=== PATIENT | male | born 1960 | race Caucasian/White ===

== ENCOUNTER → 2017-01-04 | Outpatient (CLI) | payer BC ==
[~2017-01-04] MED LIST: ABILIFY10 MG PO; CLARITIN10 MG PO; INVOKANA100 MG PO; METFORMIN HCL500 MG PO; MOBIC15 MG PO; PIOGLITAZONE15 MG PO; WELLBUTRIN XL300 MG PO; XANAX 0.5 MG0.5 MG PO
--- NOTE | ~2017-01-04 | SLE ---
[facility] [place] [address] POLYSOMNOGRAPHY STUDY Name: JACOBY SIMON [id number] Admission: 01/04/17 Attend Phys: Noah Barrios MD Discharge: Date of : 58 Report #: [id number] THIS REPORT FOR: //name// CC: Noah Barrios MD SUBJECTIVE: A 56-year-old, height 5 feet 6-1/2, weight 230 pounds. COMMENTS: History of obstructive sleep apnea. A baseline portion was done with an apnea-hypopnea index of 26 events per sleep hour, higher in REM sleep. CPAP TITRATION: Titrated at 9, 10, 12, 13 and 14 cm water pressure. At 13 cm water pressure, the patient was seen for 97 minutes of which 48 minutes was in REM sleep. There were 4 hypopneas, apnea-hypopnea index of 2.5 events per sleep hour, low sat of 92%. IMPRESSION: 1. History of obstructive sleep apnea, G47.33. 2. No significant arrhythmia noted. 3. Periodic limb movement with arousal index throughout the night was 15 events per sleep hour. These did decrease later in the evening. 4. CPAP improves the patient's apnea-hypopnea index, snoring and desaturation. The patient was seen in supine REM sleep at 13 cm. SUGGESTIONS: 1. In addition to specific therapy, the patient should be cautioned regarding driving or operating dangerous machinery unless fully alert. The patient should be cautioned on the use of respiratory depressants. 2. TSH and weight loss per Dr. Barrios. 3. Oral appliance or appropriate surgery may be considered with appropriate followup. 4. An auto titrating CPAP between 9 and 15 cm water pressure is initially recommended. During our study, an Eson 2 nasal mask, small was used with heated humidity. C-Flex of 3 was used also. 5. Further evaluation regarding restless legs and periodic limb movement is recommended. 6. If signs and symptoms not improved with therapy, further evaluation is recommended. Please do not hesitate to contact me if I may be of further assistance. <ELECTRONICALLY SIGNED> By: Renuka Onofre MD 01/07/17 1703 [id number] Renuka Onofre MD /nt
== END ==
LOC: SLEEPLAB 20:00
DX: G47.33 Obstructive sleep apnea (adult) (pediatric) (principal)